=== PATIENT | male | born 1960 | race Caucasian/White ===

== ENCOUNTER 2022-05-10 10:45 | Inpatient (IN) ==
--- NOTE | 2022-05-10 10:56 | ED.PDOC ---
General ED Provider: Dr. DEMETRA LEMOS MD Chief Complaint: Palpitations Stated Complaint: mild palpitations today at Dr Blair office, sent to ER for new onset rapid atrial flutter, hx dizzy for a week, no chest pain, not short of breath, no hx mi, htn or dm Time Seen by Provider: 05/10/22 10:47 Mode of Arrival: Walk-In Information Source: Patient Primary Care Provider: JAMARI BLAIR Nursing and Triage Documentation Reviewed and Agree: Yes Does patient meet sepsis criteria?: No System Inflammatory Response Syndrome: Not Applicable Sepsis Protocol: For patient's 13 years and over: Temp is 96.8 and below OR 101 and greater Pulse >90 BPM Resp >20/minute Acutely Altered Mental Status Are patient's symptoms suggestive of a new infection, such as: -Pneumonia -Skin, Soft Tissue -Endocarditis -UTI -Bone, Joint Infection -Implantable Device -Acute Abdominal Infection -Wound Infection -Meningitis -Blood Stream Catheter Infection -Unknown Review of Systems Review Of Systems Constitutional: Denies Fever or Malaise Eyes: Denies Vision change Ears, Nose, Mouth, Throat: Denies Throat pain Respiratory: Denies Short of air Cardiac: Reports Palpitations; Denies Chest pain GI: Denies Abdominal pain or Vomiting : Denies Frequency Musculoskeletal: Denies Back pain or Neck pain Skin: Denies Rash or Cyanosis Neurological: Denies Cognitive dysfunction All Other Systems: Other Physical Exam Physical Exam Appearance: Reports Well-appearing Ill-appearing: None Pain Distress: None Eyes: Reports EOMI and Conjunctiva clear ENT: Reports Oropharynx normal Neck: Supple Respiratory: Reports Airway patent, Breath sounds clear and Breath sounds equal Cardiovascular: Reports Irregular rhythm and Tachycardia GI/: Reports Soft and Nontender Musculoskeletal: Reports ROM intact Skin: Reports Warm and Dry Neurological: Reports Alert and Oriented Psychiatric: Reports Affect appropriate Interpretation Radiology Interpretation Radiology Interpretation By: Radiologist Radiology Results: No acute changes Exam Interpreted: CXR EKG Interpretation Time of EKG #1: 14:25 Interpretation: atrial flutter 158 no stemi Critical Care Note Critical Care Note Total Critical Care Time (mins): 0 Course Course Hematology/Chemistry: 05/10/22 11:05 05/10/22 11:05 Orders, Labs, Meds: Lab Review 05/10/22 05/10/22 05/10/22 11:02 11:05 11:05 WBC 8.40 RBC 5.02 Hgb 16.4 Hct 47.3 MCV 94.2 H MCH 32.7 H MCHC 34.7 RDW Coeff of Chanelle 12.2 Plt Count 211 Immature Gran % (Auto) 0.2 Neut % (Auto) 59.5 Lymph % (Auto) 26.3 Wayne % (Auto) 10.6 H Eos % (Auto) 2.7 Baso % (Auto) 0.7 Neut # (Auto) 5.0 Lymph # (Auto) 2.2 Wayne # (Auto) 0.9 Eos # (Auto) 0.2 Baso # (Auto) 0.1 Immature Gran # (Auto) 0.0 PT 10.7 INR 1.03 Sodium Potassium Chloride Carbon Dioxide Anion Gap BUN Creatinine Estimated GFR (MDRD) BUN/Creatinine Ratio Glucose Calcium Total Bilirubin AST ALT Alkaline Phosphatase Troponin I Total Protein Albumin Globulin Albumin/Globulin Ratio Plasma/Serum Alcohol SARS CoV-2 RNA Rapid NAHEED Negative 05/10/22 11:05 WBC RBC Hgb Hct MCV MCH MCHC RDW Coeff of Chanelle Plt Count Immature Gran % (Auto) Neut % (Auto) Lymph % (Auto) Wayne % (Auto) Eos % (Auto) Baso % (Auto) Neut # (Auto) Lymph # (Auto) Wayne # (Auto) Eos # (Auto) Baso # (Auto) Immature Gran # (Auto) PT INR Sodium 141.7 Potassium 4.92 Chloride 104.8 Carbon Dioxide 29.9 Anion Gap 11.92 BUN 15.1 Creatinine 1.01 Estimated GFR (MDRD) 75.00 BUN/Creatinine Ratio 14.95 Glucose 107.8 H Calcium 9.88 Total Bilirubin 0.66 AST 42.4 ALT 47.9 Alkaline Phosphatase 39.7 L Troponin I < 0.012 Total Protein 8.10 Albumin 4.90 Globulin 3.20 Albumin/Globulin Ratio 1.53 Plasma/Serum Alcohol < 10.0 SARS CoV-2 RNA Rapid NAHEED Orders Category Date Time Status EKG-(ED ONLY) Stat CARDIO 05/10/22 10:51 Completed BLOOD ALCOHOL Stat LAB 05/10/22 11:05 Completed BNP [NT-PROBNP] Stat LAB 05/10/22 Ordered CBC W/ AUTO DIFF Stat LAB 05/10/22 11:05 Completed CMP [COMPREHENSIVE METABOLIC PANEL] Stat LAB 05/10/22 11:05 Completed DRUG SCREEN, URINE, RAPID Stat LAB 05/10/22 10:51 Uncollected FREE T4 (FREE THYROXINE) Stat LAB 05/10/22 14:22 Ordered PT WITH INR Stat LAB 05/10/22 11:05 Completed SARS COV-2 RNA RAPID NAHEED Stat LAB 05/10/22 11:02 Completed TROPONIN I Stat LAB 05/10/22 11:05 Completed TSH [THYROID STIMULATING HORMONE] Stat LAB 05/10/22 14:22 Ordered Apixaban [Eliquis] MEDS 05/10/22 14:22 Once 5 mg PO ONCE ONE Digoxin Inj [Lanoxin] MEDS 05/10/22 13:12 Discontinued 250 mcg IVP ONCE STA Diltiazem HCl [Cardizem Inj] MEDS 05/10/22 11:52 Discontinued 15 mg IVP ONCE ONE Diltiazem HCl [Cardizem] 125 mg MEDS 05/10/22 11:00 Active 0.9 % Sodium Chloride [Sodium Chloride 100Ml] 100 ml IV TITRATION CHEST, 1V AP ONLY Stat RADS 05/10/22 10:51 Completed Medications Generic Name Dose Route Start Last Admin Trade Name Freq PRN Reason Stop Dose Admin Diltiazem HCl 125 mg/ Sodium 125 mls @ 5 mls/hr 05/10/22 11:00 05/10/22 11:41 Chloride IV 15 mg/hr TITRATION ALEJANDRO 15 mls/hr Titration Protocol 5 MG/HR Discontinued Medications Generic Name Dose Route Start Last Admin Trade Name Freq PRN Reason Stop Dose Admin Digoxin 250 mcg 05/10/22 13:12 05/10/22 13:19 Digoxin Inj 500 Mcg/2 Ml Amp IVP 05/10/22 13:13 250 mcg ONCE STA Administration Diltiazem HCl 15 mg 05/10/22 11:52 05/10/22 11:57 Diltiazem Hcl Inj 25 Mg/5 Ml Vial IVP 05/10/22 11:53 15 mg ONCE ONE Administration Vital Signs: Temp Pulse Resp BP Pulse Ox 05/10/22 14:00 87 17 128/84 97 05/10/22 13:00 96 117/86 05/10/22 12:30 157 H 20 144/119 H 96 05/10/22 13:19 113 H 05/10/22 10:46 98.0 F 157 H 16 141/107 H 99 MARCO Risk Score MARCO Risk Score: Risk Score Odds of by 30D 0 0.1 (0.1-0.2) 1 0.3 (0.2-0.3) 2 0.4 (0.3-0.5) 3 0.7 (0.6-0.9) 4 1.2 (1.0-1.5) 5 2.2 (1.9-2.6) 6 3.0 (2.5-3.6) 7 4.8 (3.8-6.1) Discharge Plan Discharge Patient Disposition: ADMITTED INPATIENT Discharge Problem: Atrial flutter, Palpitations Prescriptions: No Action No Reported Medications 0 Qty: 0 Did you review [place] TROUSSEAU CONSULTANT?: Not Applicable ED Provider: DEMETRA LEMOS Condition: Stable Physician Progress Note: []treatment and admit d/w Dr Blair in ER
[2022-05-10 11:11] LABS: BASOPHILS # (AUTO) 0.1 K/uL (0-0.2); BASOPHILS % (AUTO) 0.7 % (0.0-3.0); EOSINOPHILS # (AUTO) 0.2 K/ul (0.0-0.7); EOSINOPHILS % (AUTO) 2.7 % (0.0-7.0); HEMATOCRIT 47.3 % (42.0-52.0); HEMOGLOBIN 16.4 g/dl (14.0-18.0); IMMATURE GRANULOCYTE % (AUTO) 0.2 % (0.0-5.0); LYMPHOCYTES # (AUTO) 2.2 K/uL (0.60-3.4); LYMPHOCYTES % (AUTO) 26.3 (10.0-50.0); MEAN CORPUSCULAR HEMOGLOBIN 32.7 pg (27.0-31.0); MEAN CORPUSCULAR HGB CONC 34.7 (31.8-35.4); MEAN CORPUSCULAR VOLUME 94.2 fl (80.0-94.0); MONOCYTES # (AUTO) 0.9 K/uL (0.4-2.0); MONOCYTES % (AUTO) 10.6 (0-10); NEUTROPHILS % (AUTO) 59.5 % (42.2-75.2); PLATELET COUNT 211 10^3/uL (140-440); RDW COEFFICIENT OF VARIATION 12.2 % (11.6-14.8); RED BLOOD COUNT 5.02 10^6/ul (4.70-6.10)
[2022-05-10] MEDS: CARDIZEM 125 MG in SODIUM CHLORIDE 100ML 100 ML IV SCH ×2 (11:16→20:32)
[2022-05-10 11:27] LABS: ALANINE AMINOTRANSFERASE 47.9 U/L (0-50); ALKALINE PHOSPHATASE 39.7 U/L (56-119); ASPARTATE AMINO TRANSFERASE 42.4 U/L (17-59); BILIRUBIN,TOTAL 0.66 mg/dL (0.2-1.3); BLOOD UREA NITROGEN 15.1 mg/dL (9-20); CALCIUM 9.88 mg/dL (8.4-10.2); CARBON DIOXIDE 29.9 mmol/L (22-30.0); CHLORIDE 104.8 mmol/L (98-107); CREATININE 1.01 mg/dL (0.60-1.10); GLUCOSE 107.8 mg/dL (74-106); POTASSIUM 4.92 mmol/L (3.5-5.1); SODIUM 141.7 mmol/L (134.5-145)
[2022-05-10 11:39] LABS: BLOOD ALCOHOL < 10.0 mg/dL (0.0-50.0); TROPONIN I < 0.012 ng/ml (0.0000-0.120)
[2022-05-10 11:42] LABS: PROTHROMBIN TIME 10.7 SEC (9.3-11.0)
--- NOTE | 2022-05-10 11:44 | DI ---
EXAM: Chest one-view HISTORY: Palpitations COMPARISON: None FINDINGS: Cardiac silhouette and mediastinum are normal. There is no pulmonary infiltrate.There is no pleural effusion. Skeletal structures unremarkable IMPRESSION: Negative chest. No active cardiopulmonary disease
[2022-05-10] MEDS ORDERED: CARDIZEM INJ IVP ONE (11:52)
[2022-05-10] MEDS ORDERED: LANOXIN IVP STA (13:12)
[2022-05-10] MEDS ORDERED: ELIQUIS PO ONE (14:22)
[2022-05-10] MEDS ORDERED: TYLENOL PO PRN (14:27)
[2022-05-10] MEDS ORDERED: SODIUM CHLORIDE 1,000 ML IV SCH ×2 (14:30→16:46)
[2022-05-10] MEDS ORDERED: CARDIZEM 125 MG in SODIUM CHLORIDE 100ML 100 ML IV SCH (14:30)
[2022-05-10 15:51] VITALS: BMI 34.0
[2022-05-10] MEDS ORDERED: CARDIZEM PO ONE ×2 (16:47→21:00)
[2022-05-10] MEDS ORDERED: CORDARONE PO ONE ×2 (16:55→22:00)
[2022-05-10 17:34] LABS: THYROID STIMULATING HORMONE 2.11 uIU/L (0.465-4.68)
[2022-05-10 20:34] LABS: AMPHETAMINE SCREEN,URINE NEGATIVE (NEGATIVE); BARBITURATE SCREEN,URINE NEGATIVE (NEGATIVE); METHAMPHETAMINES SCREEN,URINE NEGATIVE (NEGATIVE); OPIATE SCREEN,URINE NEGATIVE (NEGATIVE); PHENCYCLIDINE SCREEN,URINE NEGATIVE (NEGATIVE)
[2022-05-10 20:35] LABS: BENZODIAZEPINES SCREEN,URINE NEGATIVE (NEGATIVE); CANNABINOID SCREEN,URINE NEGATIVE (NEGATIVE); COCAIN SCREEN,URINE NEGATIVE (NEGATIVE); METHADONE URINE SCREEN NEGATIVE (NEGATIVE); OXYCODONE URINE SCREEN NEGATIVE (NEGATIVE); PROPOXYPHENE URINE SCREEN NEGATIVE (NEGATIVE); TRICYCLIC ANTIDEPRESSANTS URIN NEGATIVE (NEGATIVE)
[2022-05-10] MEDS: ELIQUIS PO SCH (21:27)
[2022-05-11 04:30] LABS: BASOPHILS # (AUTO) 0.1 K/uL (0-0.2); BASOPHILS % (AUTO) 0.7 % (0.0-3.0); EOSINOPHILS # (AUTO) 0.3 K/ul (0.0-0.7); EOSINOPHILS % (AUTO) 3.3 % (0.0-7.0); IMMATURE GRANULOCYTE % (AUTO) 0.2 % (0.0-5.0); LYMPHOCYTES # (AUTO) 2.7 K/uL (0.60-3.4); LYMPHOCYTES % (AUTO) 30.7 (10.0-50.0); MEAN CORPUSCULAR HEMOGLOBIN 32.2 pg (27.0-31.0); MEAN CORPUSCULAR HGB CONC 34.1 (31.8-35.4); MEAN CORPUSCULAR VOLUME 94.4 fl (80.0-94.0); MONOCYTES # (AUTO) 0.9 K/uL (0.4-2.0); MONOCYTES % (AUTO) 10.6 (0-10); NEUTROPHILS # (AUTO) 4.8 K/ul (2.0-6.9); NEUTROPHILS % (AUTO) 54.5 % (42.2-75.2); PLATELET COUNT 182 10^3/uL (140-440); RDW COEFFICIENT OF VARIATION 12.3 % (11.6-14.8); RED BLOOD COUNT 4.66 10^6/ul (4.70-6.10); WHITE BLOOD COUNT 8.86 K/ul (4.2-10.2)
[2022-05-11 04:42] LABS: ALBUMIN 4.29 g/dL (3.5-5.0); ALKALINE PHOSPHATASE 34.3 U/L (56-119); BILIRUBIN,TOTAL 0.91 mg/dL (0.2-1.3); BLOOD UREA NITROGEN 17.6 mg/dL (9-20); CALCIUM 9.02 mg/dL (8.4-10.2); CARBON DIOXIDE 31.5 mmol/L (22-30.0); CHOLESTEROL 162.6 mg/dL (0-200); CREATININE 1.02 mg/dL (0.60-1.10); GLUCOSE 118.8 mg/dL (74-106); HDL CHOLESTEROL 32.1 mg/dL (35-60); LDL CHOLESTEROL,CALCULATED 111 mmol/L; POTASSIUM 4.72 mmol/L (3.5-5.1); SODIUM 139.3 mmol/L (134.5-145); TOTAL PROTEIN 7.03 g/dL (6.3-8.2); TRIGLYCERIDES 97.2 mg/dL (0-150); VLDL CHOLESTEROL 19 mg/dL (2-30)
[2022-05-11 04:54] LABS: TROPONIN I < 0.012 ng/ml (0.0000-0.120)
[2022-05-11] MEDS ORDERED: LANOXIN IVP ONE ×2 (07:22→09:00)
[2022-05-11] MEDS ORDERED: CORDARONE PO ONE ×2 (07:23→13:24)
[2022-05-11] MEDS ORDERED: CARDIZEM PO ONE (07:23)
[2022-05-11] MEDS: ELIQUIS PO SCH ×2 (08:19→21:15)
--- NOTE | 2022-05-11 08:53 | PCM.PROG ---
Attending Provider: ATTENDING PROVIDER: Dr. JAMARI BLAIR This patient is seen with Abimbola Gonzalez, Nurse Practitioner. DATE OF SERVICE: 05/11/22 SUBJECTIVE: This 62 year old /WHITE M was hospitalized 05/10/22. Heart rate down around 100. The patient is in atrial fibrillation He has tolerated Cardizem drip down to 2.5mic. Per Dr. Blair's orders attempt PO Cardizem and Amiodarone along with IV Digoxin. The patient still denies any shortness of breath, chest pain or rightness. T4 TSH normal. REVIEW OF SYSTEMS: CONSTITUTIONAL: No night sweats. Fatigue. No fever or chills. HEENT: Eyes: No visual changes. No eye pain. No eye discharge. ENT: No runny nose. No epistaxis. No sinus pain. No odynophagia. No congestion. RESPIRATORY: No cough, no congestion. No hemoptysis. No shortness of breath. CARDIOVASCULAR: No angina symptoms. No CHF symptoms. No atypical chest pain for CAD. Palpitations. No orthopnea.. GASTROINTESTINAL: No abdominal pain. No nausea or vomiting. No diarrhea or constipation. No hematemesis. No hematochezia. GENITOURINARY: No urgency. No frequency. No dysuria. No hematuria. No obstructive symptoms. No discharge. No pain. No significant abnormal bleeding. MUSCULOSKELETAL: No musculoskeletal pain; no joint swelling. NEUROLOGICAL: Awake, alert, oriented to time, place and person. No headache. No neck pain. No syncope. No seizures. No dizziness. PSYCHIATRIC: Not anxious. No depression. No suicidal thoughts. No homicidal thoughts. SKIN: No rash. No lesions. No wounds. ENDOCRINE: No unexplained weight loss. No weight gain. HEMATOLOGIC/LYMPHATIC: No anemia. No purpura. No petechiae. No prolonged or excessive bleeding. No palpable lymph nodes. PHYSICAL EXAMINATION: GENERAL: The patient is awake, alert and oriented, lying in bed in no distress. VITAL SIGNS: Temperature 98.0 F, Pulse 93, Respiratory Rate 20, BP 126/75, Pulse Ox 97% HEENT: Head normocephalic, atraumatic. Eyes: Extraocular muscles are intact. Pupils are equal, round and reactive to light and accommodation. Ears: No lesions. Nose appeared normal. Throat: No exudate or erythema. NECK: Supple. No JVD, no carotid bruit. No lymphadenopathy or thyromegaly. LUNGS: Clear to auscultation. Percussion note normal. Chest symmetrical. HEART: Irregular heart rate. S1, S2, no S3. No murmurs. No cyanosis or clubbing. No ascites. Pulses: Dorsalis pedis and posterior tibial pulses +1 to +2 both sides. ABDOMEN: Soft. Non-tender. Bowel sounds active. No CVA tenderness. No mass felt. EXTREMITIES: No edema. Full range of motion of all extremities, equal. NEUROLOGIC: No focal deficit. Cranial nerves II through XII are grossly intact. No headache. No double vision. SKIN: Not dry. Intact. Turgor-normal. LYMPHATIC: No palpable lymph nodes/no lymphedema. MUSCULOSKELETAL: Normal joints with no swelling. Muscle tone is normal. LAB REVIEW: 05/11/22 04:27 05/11/22 04:27 05/11/22 04:27: WBC 8.86, RBC 4.66 L, Hgb 15.0, Hct 44.0, MCV 94.4 H, MCH 32.2 H , MCHC 34.1, RDW Coeff of Chanelle 12.3, Plt Count 182, Immature Gran % (Auto) 0.2, Neut % (Auto) 54.5, Lymph % (Auto) 30.7, Petroleum % (Auto) 10.6 H, Eos % (Auto) 3.3, Baso % (Auto) 0.7, Neut # (Auto) 4.8, Lymph # (Auto) 2.7, Petroleum # (Auto) 0.9, Eos # (Auto) 0.3, Baso # (Auto) 0.1, Immature Gran # (Auto) 0.0 05/11/22 04:27: Sodium 139.3, Potassium 4.72, Chloride 105.0, Carbon Dioxide 31.5 H, Anion Gap 7.52, BUN 17.6, Creatinine 1.02, Estimated GFR (MDRD) 74.00, BUN/Creatinine Ratio 17.25, Glucose 118.8 H, Calcium 9.02, Total Bilirubin 0.91, AST 37.0, ALT 42.0, Alkaline Phosphatase 34.3 L, Troponin I < 0.012, Total Protein 7.03, Albumin 4.29, Globulin 2.74, Albumin/Globulin Ratio 1.56, Triglycerides 97.2, Cholesterol 162.6, LDL Cholesterol, Calc 111, VLDL Cholest rosie 19, HDL Cholesterol 32.1 L, Cholesterol/HDL Ratio 5.1 05/10/22 20:27: Troponin I < 0.012 05/10/22 20:05: Urine Opiates Screen Negative, Ur Oxycodone Screen Negative, Urine Methadone Screen Negative, Ur Propoxyphene Screen Negative, Ur Barbiturates Screen Negative, U Tricyclic Antidepress Negative, Ur Phencyclidine Scrn Negative, Ur Amphetamine Screen Negative, U Methamphetamines Scrn Negative, U Benzodiazepines Scrn Negative, Urine Cocaine Screen Negative, U Cannabinoids Screen Negative 05/10/22 11:05: Hemoglobin A1c 5.58 05/10/22 11:05: NT-Pro-B Natriuret Pep 793.000 H, TSH 2.110 05/10/22 11:05: Free T4 0.99 05/10/22 11:05: Sodium 141.7, Potassium 4.92, Chloride 104.8, Carbon Dioxide 29.9, Anion Gap 11.92, BUN 15.1, Creatinine 1.01, Estimated GFR (MDRD) 75.00, BUN/Creatinine Ratio 14.95, Glucose 107.8 H, Calcium 9.88, Total Bilirubin 0.66, AST 42.4, ALT 47.9, Alkaline Phosphatase 39.7 L, Troponin I < 0.012, Total Protein 8.10, Albumin 4.90, Globulin 3.20, Albumin/Globulin Ratio 1.53, Plasma/Serum Alcohol < 10.0 05/10/22 11:05: PT 10.7, INR 1.03 05/10/22 11:05: WBC 8.40, RBC 5.02, Hgb 16.4, Hct 47.3, MCV 94.2 H, MCH 32.7 H, MCHC 34.7, RDW Coeff of Chanelle 12.2, Plt Count 211, Immature Gran % (Auto) 0.2, Neut % (Auto) 59.5, Lymph % (Auto) 26.3, Petroleum % (Auto) 10.6 H, Eos % (Auto) 2.7, Baso % (Auto) 0.7, Neut # (Auto) 5.0, Lymph # (Auto) 2.2, Petroleum # (Auto) 0.9, Eos # (Auto) 0.2, Baso # (Auto) 0.1, Immature Gran # (Auto) 0.0 05/10/22 11:02: SARS CoV-2 RNA Rapid NAHEED Negative ASSESSMENT: Please see below. 1. New onset atrial fibrillation/flutter 2. Obesity 3. History of noncompliance in medications, lifestyle and followup. PLAN: 1. Per Dr. Blair orders we will discharge Cardizem drip, one time dose of PO Cardizem 90mg, Amiodarone 200mg and IV Digoxin 0.125mg. 2. 2D echo Plan and coordination of the patient's care discussed in the presence of Night Warehouse Manager and nurse. SCRIBED BY: Latia PRIESTist scribed while in presence of service performed by Dr. Blair/Abimbola Gonzalez APRN on 05/11/22 ([id number])
[2022-05-11] MEDS ORDERED: LANOXIN IVP SCH (09:00)
--- NOTE | 2022-05-11 11:31 | HP ---
DATE OF SERVICE: 05/10/22 REASON FOR HOSPITALIZATION/HISTORY OF PRESENT ILLNESS: 62 year old white male was seen in the office with not routine workup. At that time the patient was noted to have pulse of 150 per minute. Had EKG which showed atrial flutter with 2:1 ST-T wave changes consistent with arrhythmias. On further questioning the patient had dizzy smells nearly a week ago where he though he would pass out but after that he has been feeling alright. For the past couple of days the patient has been feeling fatigued, tired but nothing usual. PAST MEDICAL HISTORY/PAST SURGICAL HISTORY: Borderline hypertension BMI more than 30 Symptoms consistent with sleep apnea, snoring and tired feeling in the morning. REVIEW OF SYSTEMS: CONSTITUTIONAL: No night sweats. Fatigue as usual. No fever or chills. HEENT: Eyes: No visual changes. No eye pain. No eye discharge. ENT: No runny nose. No epistaxis. No sinus pain. No sore throat. No odynophagia. No ear pain. No congestion. RESPIRATORY: No cough, no congestion. No hemoptysis. No shortness of breath. CARDIOVASCULAR: No angina symptoms. No CHF symptoms. No atypical chest pain for CAD. No palpitations. No PND. No orthopnea. GASTROINTESTINAL: No abdominal pain. No nausea or vomiting. No diarrhea or constipation. No hematemesis. No hematochezia. GENITOURINARY: No urgency. No frequency. No dysuria. No hematuria. No obstructive symptoms. No discharge. No pain. No significant abnormal bleeding. MUSCULOSKELETAL: No musculoskeletal pain. No joint swelling. No arthritis. NEUROLOGICAL: No headache. No neck pain. No syncope. No seizures. No dizziness. PSYCHIATRIC: Not anxious. No depression. No suicidal thoughts. No homicidal thoughts. SKIN: No rash. No lesions. No wounds. ENDOCRINE: No unexplained weight loss. No weight gain. HEMATOLOGIC/LYMPHATIC: No anemia. No purpura. No petechiae. No prolonged or excessive bleeding. No palpable lymph nodes. 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 He works with his and they are partners in the business. Social drinking. Nonsmoker. MEDICATIONS: No medications. ALLERGIES: No known allergies. PHYSICAL EXAMINATION: GENERAL: The patient is oriented to time, place and person, no distress. HEENT: Head normocephalic, atraumatic. Eyes: Extraocular muscles are intact. Pupils are equal, round and reactive to light and accommodation. Ears: No lesions. Nose appeared normal. Throat: No exudate or erythema. NECK: Supple. No JVD, no carotid bruit. No lymphadenopathy or thyromegaly. LUNGS: Clear to auscultation. Percussion note normal. Chest symmetrical. HEART: S1, S2 tachycardia, rate 150 per minute, no S3 appreciated. No murmur. No cyanosis or clubbing. No ascites. Pulses: Dorsalis pedis and posterior tibial pulses +2 bilaterally. ABDOMEN: Soft. Nontender. Bowel sounds active. No CVA tenderness. No mass felt. EXTREMITIES: No edema. Full range of motion of all extremities, equal. NEUROLOGIC: No focal deficit. Cranial nerves II through XII are grossly intact. No headache, no double vision or headache. SKIN: Not dry. Intact. Turgor - normal. LYMPHATIC: No palpable lymph nodes/no lymphedema. MUSCULOSKELETAL: Normal joints with no swelling. Muscle tone is normal. LABS: EKG atrial flutter with 2:[address]-T wave changes consistent with tachyarrhythmia. Chest x-ray normal. Oxygen saturation 98%. Sodium 141, potassium 4.9, creatinine 1, BUN 15, liver profile normal. Hgb 16, hct 47, WBC 6,400 normal differential. The patient is not vaccinated with COVID. The patient has COVID a year ago, didn't require hospitalization, didn't need any medical treatment for it. ASSESSMENT: 1. Atrial flutter with 2:1 block, fairly asymptomatic. CHADS II VASC SCORE practically 0, borderline hypertension could be 1 2. Hypertension 3. BMI more than 30 4. History consistent with sleep apnea 5. Dyslipidemia 6. Sleep apnea. PLAN: 1. Send the patient to the ER which I did and the patient was seen and examined in the emergency room a couple of time by me and ER attending, Plan was carried out 2. The patient to be started on Cardizem drip 15mg per hour drip, 10mg IV push was given 3. Lanoxin 0.125mg was given a couple hours after that the patient's heart rate was noted to be 80-100 per minute in review of her AV block 4. The patient has been admitted with Routine telemetry orders with serial EKGS and cardiac markers 5. Later on around 4:30pm the patient was seen, stable and his rate is 75-85 per minute, he was in atrial flutter with variable AV block 6. Cardizem 60mg PO around 5pm and repeat the dose at 9pm. 7. Amiodarone 200mg PO now and 200mg at 10pm. 8. Cardizem drip and make it 10mg per hour now 9. A1c 10.Lipid profile 11.T4 TSH 12. The patient has been explained about atrial flutter and it's complication like stroke, etc. Eliquis has been discussed and the complications with it like GI, intracranial bleed discussed. No nonsteroidal antiinflammatory for now. Considering the patient's age and CHADS II Vasc score of practically 0 to 1 with atrial flutter the chances of LA and LV clot is minimal CONDITION: Stable. TIME SPENT: More than 70 minutes. ADDENDUM: The patient's stay in the emergency room and on the floor until 6pm, the patient's systolic blood pressure has stayed from 150-125. His respiratory rate is 12-15 per minute. Carotid massages heart rate after Cardizem drip drops down to 35-50 per minute which was temporary. The patient also had BNP. Tomorrow we will also order a Carotid scan prior to his discharge and we will perform echocardiogram to evaluate LV function, valvular structures, possibility of thrombus or thrombi. GORGE
[2022-05-11] MEDS ORDERED: TOPROL XL PO ONE (13:04)
[2022-05-11] MEDS ORDERED: LOPRESSOR PO SCH (13:26)
--- NOTE | 2022-05-11 14:17 | US ---
EXAM: Ultrasound bilateral carotid duplex. HISTORY: Dizziness. COMPARISON: None. TECHNIQUE: A duplex Doppler study was performed consisting of integrated two dimensional (2D) real-t rodrigo imaging color flow Doppler and Doppler spectral analysis utilizing linear array probes. FINDINGS: Please note that estimates of internal carotid artery stenoses are based upon NASCET crite johnathan. Right carotid: Noncalcified plaquing without 50% or greater stenosis. Peak systolic velocity measur ement in the right internal carotid artery is 0.85 meters per second. Right internal to common carot id artery peak systolic velocity ratio measures 0.9. End diastolic velocity measurement in the right internal carotid artery is 0.25 meters per second. Flow in the right vertebral artery is antegrade. Left carotid: Noncalcified plaquing without 50% or greater stenosis. Peak systolic velocity measure ment in the left internal carotid artery is 0.92 meters per second. Left internal to common carotid artery peak systolic velocity ratio measures 1.4. End diastolic velocity measurement in the left int ernal carotid artery measures 0.45 meters per second. Flow in the left vertebral artery is antegrade . IMPRESSION: 1. No evidence for 50% or greater stenosis in the right or left internal carotid artery. 2. Antegrade flow in both vertebral arteries.
[2022-05-11] MEDS ORDERED: CORDARONE PO SCH (18:00)
[2022-05-12 05:42] LABS: BASOPHILS # (AUTO) 0.1 K/uL (0-0.2); BASOPHILS % (AUTO) 0.6 % (0.0-3.0); EOSINOPHILS # (AUTO) 0.3 K/ul (0.0-0.7); EOSINOPHILS % (AUTO) 3.2 % (0.0-7.0); HEMATOCRIT 42.6 % (42.0-52.0); HEMOGLOBIN 14.6 g/dl (14.0-18.0); IMMATURE GRANULOCYTE % (AUTO) 0.2 % (0.0-5.0); LYMPHOCYTES # (AUTO) 2.4 K/uL (0.60-3.4); LYMPHOCYTES % (AUTO) 29.2 (10.0-50.0); MEAN CORPUSCULAR HEMOGLOBIN 32.6 pg (27.0-31.0); MEAN CORPUSCULAR HGB CONC 34.3 (31.8-35.4); MEAN CORPUSCULAR VOLUME 95.1 fl (80.0-94.0); MONOCYTES # (AUTO) 0.8 K/uL (0.4-2.0); MONOCYTES % (AUTO) 9.4 (0-10); NEUTROPHILS # (AUTO) 4.7 K/ul (2.0-6.9); NEUTROPHILS % (AUTO) 57.4 % (42.2-75.2); PLATELET COUNT 190 10^3/uL (140-440); RDW COEFFICIENT OF VARIATION 12.4 % (11.6-14.8); RED BLOOD COUNT 4.48 10^6/ul (4.70-6.10); WHITE BLOOD COUNT 8.21 K/ul (4.2-10.2)
[2022-05-12 06:00] LABS: ALANINE AMINOTRANSFERASE 40.2 U/L (0-50); ALBUMIN 4.33 g/dL (3.5-5.0); ALKALINE PHOSPHATASE 35.5 U/L (56-119); ASPARTATE AMINO TRANSFERASE 28.4 U/L (17-59); BILIRUBIN,TOTAL 0.63 mg/dL (0.2-1.3); BLOOD UREA NITROGEN 18.5 mg/dL (9-20); CALCIUM 8.98 mg/dL (8.4-10.2); CARBON DIOXIDE 28.8 mmol/L (22-30.0); CHLORIDE 104.8 mmol/L (98-107); CREATININE 1.11 mg/dL (0.60-1.10); GLUCOSE 112.9 mg/dL (74-106); POTASSIUM 4.39 mmol/L (3.5-5.1); SODIUM 138.4 mmol/L (134.5-145); TOTAL PROTEIN 7.09 g/dL (6.3-8.2)
[2022-05-12] MEDS ORDERED: CORDARONE PO SCH (08:00)
[2022-05-12] MEDS: ELIQUIS PO SCH (09:38)
[2022-05-12] MEDS ORDERED: LOPRESSOR PO SCH (09:47)
[2022-05-12 11:27] VITALS: BP 134/71; TEMP 96.7
[2022-05-12] MEDS ORDERED: TOPROL XL PO ONE (12:20)
--- NOTE | 2022-05-16 13:17 | PN ---
DATE OF SERVICE: 05/11/22 SUBJECTIVE: The patient was seen and examined with the Nurse Practitioner. The patient's condition seems to be improving. His heart rate is between 75-110 per minute with atrial flutter with varying AV block. The patient also has a couple of atrial fibrillation in-between. REVIEW OF SYSTEMS: CONSTITUTIONAL: No night sweats. No fatigue, malaise, lethargy. No fever or chills. HEENT: Eyes: No visual changes. No eye pain. No eye discharge. ENT: No runny nose. No epistaxis. No sinus pain. No sore throat. No odynophagia. No congestion. RESPIRATORY: No cough, no congestion. No hemoptysis. No shortness of breath. CARDIOVASCULAR: No angina symptoms. No CHF symptoms. No atypical chest pain for CAD. No palpitations. No PND. No orthopnea. GASTROINTESTINAL: No abdominal pain. No nausea or vomiting. No diarrhea or constipation. No hematemesis. No hematochezia. GENITOURINARY: No urgency. No frequency. No dysuria. No hematuria. No obstructive symptoms. No discharge. No pain. No significant abnormal bleeding. MUSCULOSKELETAL: No musculoskeletal pain; no joint swelling. NEUROLOGICAL: No headache. No neck pain. No syncope. No seizures. No dizziness. PSYCHIATRIC: Not anxious. No depression. No suicidal thoughts. No homicidal thoughts. SKIN: No rash. No lesions. No wounds. ENDOCRINE: No unexplained weight loss. No weight gain. HEMATOLOGIC/LYMPHATIC: No anemia. No purpura. No petechiae. No prolonged or excessive bleeding. No palpable lymph nodes. PHYSICAL EXAMINATION: HEENT: Head normocephalic, atraumatic. Eyes: Extraocular muscles are intact. Pupils are equal, round and reactive to light and accommodation. Ears: No lesions. Nose appeared normal. Throat: No exudate or erythema. NECK: Supple. No JVD, no carotid bruit. No lymphadenopathy or thyromegaly. LUNGS: Clear to auscultation. Percussion note normal. Chest symmetrical. HEART: S1, S2 irregular, no S3. No murmurs. No cyanosis or clubbing. No ascites. Pulses: Dorsalis pedis and posterior tibial pulses +2 bilaterally.Atrial fibrillation with varying ventricular response, rate is average 90-100 per minute. No acute changes. Cardiac markers are negative. ABDOMEN: Soft. Nontender. Bowel sounds active. No CVA tenderness. No mass felt. EXTREMITIES: No edema. Full range of motion of all extremities, equal. NEUROLOGIC: No focal deficit. Cranial nerves II through XII are grossly intact. No headache. No double vision. SKIN: Not dry. Intact. Turgor - normal. LYMPHATIC: No palpable lymph nodes/no lymphedema. MUSCULOSKELETAL: Normal joints with no swelling. Muscle tone is normal. ASSESSMENT: 1. Atrial fibrillation intermittent with atrial flutter 2. Sleep apnea 3. Borderline hypertension 4. Dyslipidemia PLAN: 1. Sleep study recommended strongly which could be a associated with hypertension and atrial fibrillation 2. Eliquis 5mg twice a day, continue. Side effects discussed; intracranial bleed and GI bleed discussed. No nonsteroidal antiinflammatory with Eliquis 3. We will put patient on Amiodarone 200mg morning also at 1-2pm and we will repeat the dose maybe in the evening 4. Metoprolol 25mg PO twice a day 5. Cardizem 90mg PO given in the morning along with 0.125mg of Lanoxin to control the rate as the rate was 120 per minute early in the morning. 6. Advised to lose weight. BMI should be around 26-27 at the most. Diet for the weight loss discussed 7. The patient's CHADS II VASC SCORE is 1 or less. 8. Further plan with possibility of referral to medical record technician discussed. 9. Continue to monitor the patient. CONDITION: Otherwise stable. The patient's is present in the room. TIME SPENT: More than 30 minutes. ADDENDUM: Echocardiogram was done which showed borderline LVH with enlarged LA cavity which was 4.3cm, valvular structures are normal. Normal LV contractility noted. LV size is normal. Plan and coordination of the patient's care discussed in the presence of nurse. GORGE
--- NOTE | 2022-05-16 14:04 | ECHO2D ---
Date of Exam: 05/11/2022 Ordering Physician: DR. JAMARI BLAIR Room #: 104 Reason for Echo: ATRIAL FLUTTER, HISTORY OF HYPERTENSION M-Mode Normal Adult Results LV Dimensions Normal Adult Results AoV Opening excursions >1.6 >1.6 LVEDD-base- 3.5-5.8 4.6 Ao root dimensions 2.0-3.7 3.2 LVESD-base- 3.1-4.6 L. Atrium dimensions 1.9-3.8 4.3 Post. Wall thickness 0.8-1.1 1.1 IV septum (thickness) 0.7-1.2 1.3 Post. Wall excursion 0.72-1.3 NORMAL Septal motion NORMAL Systolic motion R. Ventricular cavity 1.5-2.0 NORMAL LVEF 60% 56% Paradoxical septal wall motion NORMAL 2-D : 2-D M Mode Echocardiogram was performed using apical four chamber and left parasternal long and short axis views. Mitral, tricuspid and aortic valves appear to be normal. Contractility of the left ventricle seems to be normal, so is the cavity size. ENLARGED LEFT ATRIAL CAVITY Aortic roots appear to be normal. There is no pericardial effusion. There is no thrombus noted in the left ventricle or left atrial cavity. M-MODE: MV: NORMAL AV: NORMAL TV: NORMAL PV: CHAMBER SIZE: ENLARGED LEFT ATRIAL CAVITY WALL MOTION: NORMAL PERICARDIUM: NORMAL INTERPRETATION: 1. LEFT VENTRICLE HYPERTROPHY WITH ENLARGED LEFT ATRIAL CAVITY 2. XAVIER LEFT VENTRICLE CONTRACTILITY--AND LEFT VENTRICLE SIZE 3. VALVES--NORMAL 4. NO THROMBUS/ NO THROMBI MTDD
--- NOTE | 2022-05-16 14:42 | PN ---
ADMISSION DAY: LEVEL 5 REST OF THEM: INTERMEDIATE FINAL DAY: D as in discharge MTDD
--- NOTE | 2022-05-16 14:42 | DS ---
DATE OF SERVICE: 05/12/22 FINAL DIAGNOSIS: 1. Episode of atrial fibrillation for 24-36 hours in the hospital 2. History of borderline hypertension 3. History of dyslipidemia 4. BMI 34 5. History of fatty liver 6. History consistent with sleep apnea 7. COVID 19 in August 2020/Unvaccinated for COVID 19 8. Mother with C of pancreas 9. History of erectile dysfunction DISCHARGE INSTRUCTIONS: Discharge home. Instruction to come back on Monday or Monday at 10:30am. Instruction to discontinue caffeine, coffee containing product. Weight reducing diet discussed with the patient. Home sleep study to be scheduled at the time of appointment. Education carried out about atrial fibrillation complications. MARY II VASC Score 0-1. MEDICATIONS AT DISCHARGE: Amiodarone 200mg PO daily Eliquis 5mg twice a day, total of months worth samples given Metoprolol succinate 25mg BID PO HOSPITAL COURSE: 62 year old white male seen in the office on 05/10/22 for [facility] appoinment for his medical problems. He had complained of being light headed and dizzy a week prior to hospitalization. At that time was noted to have pulse of 158 per minute. EKG done in the office showed atrial flutter with 2:1. Blood pressure was 132/68 with 98% oxygen saturation. The patient was practically asymptomatic except for his light headed and dizziness, nothing about his pulse being fast. Advised to go to the emergency room for further workup in a way of cardiac markers, chest x-ray and labs. The patient was given IV Cardizem 15mg push with 10mg per hour drip. Heart rate was brought down to 100-110 per minute. The patient was hospitalized for further control of the heart rate. The patient had no evidence of any myocardial event. Later on the patient was given IV Lanoxin 0.25mg along with PO Cardizem 60mg at times a day. He was weaned off the Cardizem drip. Lanoxin IV 0.125mg was given. Metoprolol was added to it. Amiodarone was also started 100mg every 6 hour. The patient converted to sinus rhythm on 05/13/22 at approximately 5pm. The patient's echo done while he was still in flutter didn't show any evidence of thrombus or thrombi. He had borderline LVH with LA cavity of 4.2cm, valvular structures were normal. The patient remained in sinus rhythm for 24 hour prior to discharge. The patient was discharged on Lopressor and Amiodarone to be taken 200mg PO daily AM. Side effects of Eliquis like GI bleed and intracranial bleed discussed. He was advised not to take any nonsteroidal antiinflammatory along with Eliquis. The patient's lipid profile in the hospital was negative. A1c was normal. T4 TSH was negative. BNP was 793 on admission, on 05/12/22 after two days the PROBNP was 121. No evidence of CHF. The patient was strongly advised to undergo sleep apnea, to lose weight his BMI is 34. Do regular exercise program. Reccurance of atrial fibrillation he is going to be referred to quality tester but if he stays in sinus rhythm with no evidence of atrial fibrillation he is going to be closely followed by me as an outpatient to monitor his rhythm CONDITION: Stable The patient's was present during the long discussion of diet, lifestyle changes to be made. TIME SPENT: More than 60 minutes. GORGE
== END 2022-05-12 14:00 | disposition home or self-care (01) | DRG 309 ==
LOC: ED 10:45 → MEDSURG A 14:47
PROVIDERS: ADMIT Internal Medicine; ATTEND Internal Medicine